=== PATIENT | female | born 1940 | race Caucasian/White ===

== ENCOUNTER 2018-01-01 10:27 | Outpatient (CLI) | payer MEDICARE ==
--- NOTE | 2018-01-01 12:13 | RAD ---
TWO VIEWS OF THE LUMBAR SPINE: INDICATION: Low back pain. COMPARISON: None. FINDINGS: There is severe levoscoliosis of the lumbar spine centered at L3. There is advanced multilevel disk degenerative facet osteoarthritic change. No acute fracture is evident. There is also grade I anter olisthesis of L4 on L5. IMPRESSION: 1. Severe levoscoliosis of the lumbar spine centered at L3. No acute fracture or subluxation demons trated. 2. Mild grade I anterolisthesis of L4 on L5 seen on the lateral projection. POS: [facility]
== END 2018-01-01 10:28 | disposition home or self-care (01) ==
LOC: TBSIIMAG 10:27
PROVIDERS: ATTEND Neurological Surgery
DX: M54.5 Low back pain (principal); M43.16 Spondylolisthesis, lumbar region; M41.9 Scoliosis, unspecified
CPT/HCPCS: 72100